=== PATIENT | male | born 1965 | race African-American/Black ===

== ENCOUNTER 2017-04-15 18:28 | Emergency (ER) | payer OTHER ==
--- NOTE | 2017-04-15 18:46 | ED Physician Documentation ---
General Adult - HISTORIAN Historian: patient, other (law enforcement) - HPI Stated Complaint: Fit for Confinement Chief Complaint: General Adult Onset: hours Timing: still present Further Comments: yes (Pt is a 51 yo male brought to ER by law enforcement for "Fit for Confinement" eval. Pt has been drinking alcohol. Pt states he does not feel ill, and does not feel he needs a medical exam.) - ROS CONST: other (Pt denies complaints. He has been drinking alcohol.) EYES/ENT: none CVS/RESP: none GI/: none MS/SKIN/LYMPH: none - PAST HX Past History: other (HIV, asthma, HTN) Allergies/Adverse Reactions: Allergies Allergy/AdvReac Type Severity Reaction Status Date / Time No Known Allergies Allergy Verified 02/10/14 21:56 Home Medications: Ambulatory Orders Medication Instructions Recorded Amitriptyline HCl [Elavil] 1 tab PO D 02/10/14 Efavirenz/Emtricitab/Tenofovir 1 tab PO D 02/10/14 [Atripla Tablet] - SOCIAL HX Smoking History: cigarettes Alcohol Use: heavy - FAMILY HX Family History: No (no) - VITAL SIGNS Vital Signs: Vital Signs Temp Pulse Resp BP Pulse Ox 140/88 04/23/14 03:39 - REVIEWED ASSESSMENTS Nursing Assessment Reviewed: Yes Vitals Reviewed: Yes General Adult Physical Exam - PHYSICAL EXAM GENERAL APPEARANCE: no distress EENT: eye inspection normal, pharynx normal NECK: normal inspection, supple RESPIRATORY: no resp distress, chest non-tender, breath sounds normal CVS: reg rate & rhythm, heart sounds normal ABDOMEN: soft, no organomegaly, normal bowel sounds BACK: normal inspection, no CVA tenderness SKIN: warm/dry, normal color EXTREMITIES: non-tender, normal range of motion NEURO: oriented X3, motor nml, sensation nml Discharge Clincal Impression: Fit for confinement evaluation Referrals: Primary Doctor,No [Primary Care Provider] - 2 Days Condition: Stable Disposition: 01 HOME, SELF-CARE Decision to Admit: NO Decision Time: 18:52
[2017-04-15 18:53] VITALS: BP 124/77
== END 2017-04-15 18:52 | disposition home or self-care (01) ==
LOC: ED 18:28
DX: Z02.89 Encounter for other administrative examinations (principal)
CPT/HCPCS: 99284

== ENCOUNTER 2017-09-18 09:26 | Emergency (ER) | payer SELFPAY ==
[2017-09-18 09:44] LABS: BASOPHILS % 0.6 (0.0-1.5); EOSINOPHILS % 2.4 % (0.0-6.8); MEAN CORPUSCULAR HEMOGLOBIN 30.1 pg (28.0-34.0); MONOCYTES % 4.5 % (0.0-11.0); NEUTROPHILS # 7.5 # k/uL (1.4-7.7)
[2017-09-18] MEDS: ASPIRIN 81 MG CHEW TAB PO ONE (09:48)
[2017-09-18 09:54] LABS: eGFR (African) > 60; eGFR (Non-African) > 60
--- NOTE | 2017-09-18 09:54 | ED Physician Documentation ---
Chest Pain - HISTORIAN Historian: patient, spouse - HPI Stated Complaint: chest pain Chief Complaint: Chest Pain Additional Information: lt low para sternal chest pain onset while ligt tub dishes at work. onset 0730.reproducible w/pressure no radiation no sob of diaphoresis hurts min to deep breathe Onset: hours Timing: sudden onset Duration: constant, waxing, waning Last known Well Date: 09/18/17 Last Known Well Time: 08:30 Context: exertion Severity: moderate Quality: tightness, burning, aching, sharp Chest Pain Radiation: no radiation Chest Pain Signs/Symptoms: nausea. denies: vomiting, diaphoresis, cool extremities, dizziness, dyspnea Worsened By: deep breaths, other (palpation) - ROS CONST: none GI/: nausea. denies: abdominal pain EYES/ENT: denies: problems with vision SKIN/ENDO: none. denies: recent weight change NEURO/PSYCH: none - PAST HX MD risk factors: hypertension, other (hiv neuro) Allergies/Adverse Reactions: Allergies Allergy/AdvReac Type Severity Reaction Status Date / Time No Known Allergies Allergy Verified 09/18/17 09:49 Home Medications: Ambulatory Orders Medication Instructions Recorded Amitriptyline HCl [Elavil] 1 tab PO D 02/10/14 Efavirenz/Emtricitab/Tenofovir 1 tab PO D 02/10/14 [Atripla Tablet] - SOCIAL HX Smoking History: greater than 1 pack/day Alcohol Use: occasionally Drug Use: other (cocain in past) - FAMILY HX Family HX: none - VITAL SIGNS Vital Signs: Vital Signs Temp Pulse Resp BP Pulse Ox 97.8 F 78 24 126/92 94 09/18/17 09:26 09/18/17 09:38 09/18/17 09:26 09/18/17 09:26 09/18/17 09:38 - REVIEWED ASSESSMENTS Nursing Assessment Reviewed: Yes Vitals Reviewed: Yes ED Results Lab/Radiology - Lab Results Lab Results: Lab Results 09/18/17 09:40 WBC 10.00 K/ul K/ul (4.00-12.00) RBC 4.49 M/ul M/ul (3.90-5.20) Hgb 13.5 g/dL g/dL (12.0-18.0) Hct 41.3 % % (37.0-53.0) MCV 92.0 fl fl (80.0-100.0) MCH 30.1 pg pg (28.0-34.0) MCHC 32.7 g/dL g/dL (30.0-36.0) RDW 13.2 % % (11.3-14.3) Plt Count 302 K/mm3 K/mm3 (130-400) Neut % (Auto) 75.6 % % (39.0-79.0) Lymph % (Auto) 15.0 % L % (16.0-50.0) [place] % (Auto) 4.5 % % (0.0-11.0) Eos % (Auto) 2.4 % % (0.0-6.8) Baso % (Auto) 0.6 (0.0-1.5) Neut # (Auto) 7.5 # k/uL # k/uL (1.4-7.7) Lymph # (Auto) 1.5 # k/uL # k/uL (0.6-4.0) [place] # (Auto) 0.4 # k/uL # k/uL (0.0-0.9) Eos # (Auto) 0.2 # k/uL # k/uL (0.0-0.6) Baso # (Auto) 0.1 # k/uL # k/uL (0.0-0.5) Reactive Lymphs % 1.8 % % (0.0-5.0) Reactive Lymphs # 0.2 # k/uL # k/uL (0.0-0.8) - Orders Orders: ED Orders Category Date Time Status Continuous EKG monitoring Q30M Care 09/18/17 09:38 Active Continuous Pulse Oximetry Q30M Care 18 09:[address] IV Lock 1T Care 18 09:38 Active CBC/PLATELET/DIFF Routine Lab 09/18/17 09:40 Completed CMP Routine Lab 09/18/17 09:40 Received TROPONIN I (cTnI) Stat Lab 09/18/17 09:40 Received Aspirin Med 18 09:38 Discontinued 324 mg PO NOW ONE EKG WITH COMPARISON Stat Ther 09/18/17 09:38 Ordered Chest Pain Physical Exam - EXAM General Appearance: mild distress EENT: eye inspection normal Neck: nml inspection, no carotid bruit Respiratory: no resp. distress, nml breath sounds CVS: reg. rate & rhythm, no murmur Abdomen: soft, non-tender Skin: warm/dry, normal color. No: cyanosis, diaphoresis, jaundice, mottled Extremities: non-tender, normal range of motion Neuro: oriented X3, motor nml, sensation nml, mood/affect nml Discharge Clincal Impression: atypical chest pain, suspect costochondritis, hx htn hiv neuropathy Referrals: Primary Doctor,No [Primary Care Provider] - 2 Days Comments: home f/u w/pcp very soon hi k diet Condition: Good Disposition: 01 HOME, SELF-CARE Decision to Admit: NO Decision Time: 12:48
[2017-09-18 12:49] VITALS: BP 124/76
== END 2017-09-18 12:52 | disposition home or self-care (01) ==
LOC: ED 09:26
DX: M94.0 Chondrocostal junction syndrome [Tietze] (principal); I10 Essential (primary) hypertension; F17.210 Nicotine dependence, cigarettes, uncomplicated; B20 Human immunodeficiency virus [HIV] disease; G62.9 Polyneuropathy, unspecified
CPT/HCPCS: 80053; 84484; 85025; 99282; 99283; S1016

== ENCOUNTER 2018-09-14 06:35 | Emergency (ER) | payer OTHER ==
[2018-09-14 06:50] VITALS: BP 134/87
[2018-09-14] MEDS ORDERED: KETOROLAC TROMETHAMINE 60 MG/2 ML VIAL IM ONE (07:05)
[2018-09-14] MEDS ORDERED: methylPREDNISolone SOD SUCC 125 MG/2 ML VIAL IM ONE (07:05)
[2018-09-14] MEDS ORDERED: ORPHENADRINE CITRATE 60 MG/2 ML ML IM ONE (07:05)
--- NOTE | 2018-09-14 07:19 | ED Physician Documentation ---
Hip Injury/Pain - HISTORIAN Historian: patient - HPI Stated Complaint: R hip pain Chief Complaint: Hip Pain Additional Information: Patient presents to ED with a 5 day history of right lateral hip pain radiating down right leg. Patient states he moved last Monday and has been having symptoms since that time. Last night the pain intensified and he was unable to sleep. He rates his pain 8/10, sharp, stinging. Onset: days ago (5) Where: home Severity: moderate Duration: persistent since Context: other (heavy lifting) Symptoms Prior to Fall: none Other Injuries: none Subsequent Symptoms: denies: sensory loss, motor loss, weakness, bladder problem - ROS CONST: no problems RESP: denies: shortness of breath GI/: none EYES/ENT: none MS/SKIN/LYMPH: denies: rash NEURO/PSYCH: denies: confusion - PAST HX Cardiac Disease: none PE Risk Factors: hypertension Surgeries/Procedures: none Allergies/Adverse Reactions: Allergies Allergy/AdvReac Type Severity Reaction Status Date / Time No Known Allergies Allergy Verified 09/14/18 06:49 Home Medications: Ambulatory Orders Medication Instructions Recorded Baclofen 10 mg PO TID PRN #30 tablet 09/14/18 - SOCIAL HX Smoking History: non-smoker Alcohol Use: none Drug Use: none - FAMILY HX Family History: Yes - VITAL SIGNS Vital Signs: Vital Signs Temp Pulse Resp BP Pulse Ox 97.2 F L 84 16 134/87 99 09/14/18 06:35 09/14/18 07:52 09/14/18 07:52 09/14/18 07:52 09/14/18 07:52 - REVIEWED ASSESSMENTS Nursing Assessment Reviewed: Yes Vitals Reviewed: Yes ED Results Lab/Radiology - Radiology Radiology Impressions: Report Submission Date: Sep 14, 2018 7:53:08 AM AIR BAG CURER Patient Study Name: ANJALI DICKINSON Date: Sep 14, 2018 7:15:41 AM AIR BAG CURER Modality Type: DX Gender: M Description: L SPINE 2 OR 3 VIEWS : 63 Institution: [facility] Physician: VIOLETTA SANTOS Lumbar spine History: Low back pain AP and lateral projections of the lumbar spine demonstrate mild disc space narrowing with anterior spondylosis at L4/5. There is additionally a grade 1 retrolisthesis of L4 relative to L5 measured at 5 mm. Otherwise, vertebral body height and intervertebral disc space height is maintained. Impression: Degenerative findings at L4/5 as described. Electronically signed on Sep 14, 2018 7:53:08 AM AIR BAG CURER by: Toya Robertson Report Submission Date: Sep 14, 2018 7:53:57 AM AIR BAG CURER Patient Study Name: ANJALI DICKINSON Date: Sep 14, 2018 7:15:41 AM AIR BAG CURER Modality Type: DX Gender: M Description: RT HIP 2VIEW COMPLETE : 63 Institution: [facility] Physician: VIOLETTA SANTOS Right hip History: Hip pain AP and frog-leg lateral projections of the right hip demonstrate no osseous abnormalities. There are no degenerative findings. The right SI joint is patent. Impression: No osseous abnormality. Electronically signed on Sep 14, 2018 7:53:57 AM AIR BAG CURER by: Toya Robertson - Orders Orders: ED Orders Category Date Time Status L SPINE 2 OR 3 VIEWS [RAD] Stat Exams 09/14/18 Ordered RT HIP 2VIEW COMPLETE [RAD] Stat Exams 09/14/18 Ordered Ketorolac Tromethamine [Toradol] Med 09/14/18 07:05 Discontinued 60 mg IM NOW ONE Orphenadrine Citrate [Norflex] Med 09/14/18 07:05 Discontinued 60 mg IM NOW ONE methylPREDNISolone SOD SUCC [Solu-MEDROL] Med 09/14/18 07:05 Discontinued 125 mg IM NOW ONE Hip Injury/Pain Physical Exam - EXAM General Appearance: no acute distress, alert Extremities: nml ROM, no pedal edema EENT: ISH Neck: nml inspection, non-tender Respiratory: chest non-tender, breath sounds nml CVS: reg rate & rhythm Abdomen: non-tender, nml bowel sounds Back: non-tender, other (tenderness over right posterior iliac crest). No: vertebral point-tendernes Neuro/Psych: oriented x3, neuro grossly intact Discharge Clincal Impression: Low back pain Qualifiers: Chronicity: acute Back pain laterality: right Sciatica presence: with sciatica Sciatica laterality: sciatica of right side Qualified Code(s): M54.41 - Lumbago with sciatica, right side Prescriptions: Baclofen 10 mg PO TID PRN #30 tablet PRN Reason: muscle spasm/back pain Referrals: Conner France MD [Primary Care Provider] - 2 Days Additional Instructions: 1. Tramadol as needed for pain. You may add tylenol and/or ibuprofen for better pain control 2. Use Baclofen with caution as it causes drowsiness 3. Apply Ice to affected area as needed for comfort 4. Follow up with PCP alfie 1 week 5. Return to ER for new or worsening symptoms. Condition: Stable Disposition: 01 HOME, SELF-CARE Decision to Admit: NO Date of Decison to Admit: 09/14/18 Decision Time: 07:30
--- NOTE | 2018-09-15 04:05 | Diagnostic Imaging Report ---
VIOLETTA SANTOS [facility] [address] [facility] [address] [place] [id number] [id number] Report Submission Date: Sep 14, 2018 7:53:57 AM ELECTRICAL DESIGN TECHNICIAN Patient Study Name: ANJALI DICKINSON Date: Sep 14, 2018 7:15:41 AM ELECTRICAL DESIGN TECHNICIAN Modality Type: DX Gender: M Description: RT HIP 2VIEW COMPLETE : 63 Institution: [facility] Physician: VIOLETTA SANTOS Right hip History: Hip pain AP and frog-leg lateral projections of the right hip demonstrate no osseous abnormalities. There are no degenerative findings. The right SI joint is patent. Impression: No osseous abnormality. Electronically signed on Sep 14, 2018 7:53:57 AM ELECTRICAL DESIGN TECHNICIAN by: Toya SIM
--- NOTE | 2018-09-15 04:19 | Diagnostic Imaging Report ---
VIOLETTA SANTOS [facility] [address] [facility] [address] [place] [address]. [id number] Report Submission Date: Sep 14, 2018 7:53:08 AM PAPER PATTERN INSPECTOR Patient Study Name: ANJALI DICKINSON Date: Sep 14, 2018 7:15:41 AM PAPER PATTERN INSPECTOR Modality Type: DX Gender: M Description: L SPINE 2 OR 3 VIEWS : 63 Institution: [facility] Physician: VIOLETTA SANTOS Lumbar spine History: Low back pain AP and lateral projections of the lumbar spine demonstrate mild disc space narrowing with anterior spondylosis at L4/5. There is additionally a grade 1 retrolisthesis of L4 relative to L5 measured at 5 mm. Otherwise, vertebral body height and intervertebral disc space height is maintained. Impression: Degenerative findings at L4/5 as described. Electronically signed on Sep 14, 2018 7:53:08 AM PAPER PATTERN INSPECTOR by: Toya SIM
== END 2018-09-14 07:52 | disposition home or self-care (01) ==
LOC: ED 06:35
DX: M54.41 Lumbago with sciatica, right side (principal)
CPT/HCPCS: 72100; 73502; 96372; 99283; 99284; J1885; J2360; J2930